=== PATIENT | female | born 1930 | race Caucasian/White ===

== ENCOUNTER → 2016-08-06 | Outpatient (CLI) | payer OTHER ==
[~2016-08-06] MED LIST: ALTACE PO; AMLODIPINE BESYL5 MG PO; ASPERDRINK81 MG PO; ASPIRIN PO; B-121000 MC1 PO; BAYER CHEWABLE81 MG PO; CARVEDILOL25 MG PO; COREG PO; DARVOCET-N 1001 TAB; ESCITALOPRAM OX10 MG PO; FAMOTIDINE; FEOSOL PO; FERRO-TIME325 MG PO; FERROUS SULFATE PO; IRON325 ( 65 ) PO; LASIX PO; LEXAPRO PO; LEXAPRO5 MG PO; LOW DOSE ASPIRI81 M1 PO; MELOXICAM7.5 MG/5 M PO; MOBIC PO; MULTI VITAMIN1 EACH PO; NAPROXEN PO; NASONEX17 GM; NORVASC; NORVASC PO; NORVASC10 MG PO; OS-CAL 500 + D500 MG PO; PACERONE; PANTOPRAZOLE SO40 MG PO; PATADAY2.5 ML; PLAVIX; PROAIR HFA8.5 GM IH; PROTONIX PO; SIMVASTATIN40 MG PO; SPIRIVA18 MCG INH; TOPROL XL; TRAMADOL HCL50 M1 PO; VITAMIN B-121000 MCG PO; VITAMIN B12-FO1 EACH PO; ZOCOR PO
== END | disposition home or self-care (01) ==
LOC: CECH 09:36
DX: I50.32 Chronic diastolic (congestive) heart failure (principal); R00.0 Tachycardia, unspecified; I08.1 Rheumatic disorders of both mitral and tricuspid valves
CPT/HCPCS: 93306